=== PATIENT | male | born 1960 | race African-American/Black ===

== ENCOUNTER 2017-12-19 12:44 | Emergency (ER) | payer MEDICAID ==
[~2017-12-19] VITALS: Ht 193 cm; Wt 109.0 kg
[2017-12-19 14:23] LABS: BASOPHILS % 0.6 % (0.0-2.0); EOSINOPHILS % 2.5 % (0.0-5.0); HEMATOCRIT. 38.6 % (42.0-52.0); HEMOGLOBIN. 12.9 g/dL (14.0-18.0); LYMPHOCYTES % 41.8 % (20.0-50.0); MEAN CORPUSCULAR HEMOGLOBIN 27.4 pg (28.0-32.0); MEAN CORPUSCULAR VOLUME 81.9 fL (80.0-94.0); MEAN PLATELET VOLUME 9.7 fl (7.4-10.4); MONOCYTES % 6.8 % (2.0-8.0); NEUTROPHILS % 48.3 % (40.0-76.0); PLATELET 162 x1000/uL (130-400); RED BLOOD CELL COUNT 4.72 mill/uL (4.7-6.1); RED CELL DISTRIBUTION WIDTH 14.1 % (11.6-14.6)
[2017-12-19 14:32] LABS: CHLORIDE 103 mEq/L (98-107)
[2017-12-19 15:30] VITALS: BP 135/87
== END 2017-12-19 16:42 | disposition home or self-care (01) ==
LOC: ER 12:44
DX: R20.2 Paresthesia of skin (principal); R07.89 Other chest pain; M79.10 Myalgia, unspecified site; M79.641 Pain in right hand; F17.200 Nicotine dependence, unspecified, uncomplicated; E11.9 Type 2 diabetes mellitus without complications
CPT/HCPCS: 36415; 71045; 83880; 84484; 93005; 99285

== ENCOUNTER 2019-02-06 13:02 | Emergency (ER) | payer MEDICAID ==
[~2019-02-06] VITALS: Ht 188 cm; Wt 114.0 kg
[2019-02-06] MEDS ORDERED: HYDROCODONE/ACETAMINOPHEN 5/325MG TABLET PO ONE (17:30)
[2019-02-06 18:06] VITALS: BP 110/61
== END 2019-02-06 18:08 | disposition home or self-care (01) ==
LOC: ER 13:02
DX: M54.5 Low back pain (principal); F17.290 Nicotine dependence, other tobacco product, uncomplicated; E11.9 Type 2 diabetes mellitus without complications
CPT/HCPCS: 99283

== ENCOUNTER 2021-04-06 17:48 | Emergency (ER) | payer MEDICAID ==
[~2021-04-06] VITALS: Ht 177.8 cm; Wt 90.0 kg
[~2021-04-06 17:48] MED LIST: ASPI-1497 PO; ATOR-2 PO; CLOP-31 MT; INSU100I28 SQ; LOSA25TA26 PO; METF-416 PO; METO25TA6 PO
[2021-04-06] MEDS ORDERED: METOCLOPRAMIDE HCL 10MG/2ML VIAL IV STA (22:34)
[2021-04-06] MEDS ORDERED: MAGNESIUM/ALUMINUM HYDROXIDE/SIMETHICONE 30ML UDC PO STA (22:34)
[2021-04-06] MEDS ORDERED: SODIUM CHLORIDE 0.9% 1,000 ML IV ONE (22:45)
[2021-04-06 22:46] LABS: BASOPHILS % 0.3 % (0.0-2.0); EOSINOPHILS % 0.1 % (0.0-5.0); HEMATOCRIT. 42.5 % (42.0-52.0); LYMPHOCYTES % 23.3 % (20.0-50.0); MEAN CORPUSCULAR HEMOGLOBIN 26.5 pg (28.0-32.0); MEAN CORPUSCULAR VOLUME 80.5 fL (80.0-94.0); MEAN PLATELET VOLUME 10.9 fl (7.4-10.4); MONOCYTES % 4.6 % (2.0-8.0); NEUTROPHILS % 71.7 % (40.0-76.0); PLATELET 162 x1000/uL (130-400); RED BLOOD CELL COUNT 5.28 mill/uL (4.7-6.1); RED CELL DISTRIBUTION WIDTH 13.9 % (11.6-14.6)
[2021-04-06 22:55] LABS: CHLORIDE 100 mEq/L (98-107)
[2021-04-06 23:09] LABS: CLARITY URINE CLEAR (CLEAR); COLOR URINE YELLOW (YELLOW); KETONES URINE 1+ (NEGATIVE); LEUKOCYTE ESTERASE URINE NEGATIVE (NEGATIVE); NITRITE URINE NEGATIVE (NEGATIVE); OCCULT BLOOD URINE NEGATIVE (NEGATIVE); PROTEIN URINE TRACE (NEGATIVE); SPECIFIC GRAVITY URINE 1.037 (1.005-1.030); UROBILINOGEN URINE 0.2 E.U./dL (0.2-1.0)
[2021-04-07] MEDS ORDERED: ONDA4TAB5 MT (01:01)
[2021-04-07 01:32] VITALS: BP 140/81
== END 2021-04-07 01:33 | disposition home or self-care (01) ==
LOC: ER 17:48
DX: R11.2 Nausea with vomiting, unspecified (principal); E10.8 Type 1 diabetes mellitus with unspecified complications; I25.2 Old myocardial infarction; Z98.61 Coronary angioplasty status; Z79.82 Long term (current) use of aspirin; Z79.4 Long term (current) use of insulin
CPT/HCPCS: 36415; 71045; 80053; 81003; 83690; 84484; 85025; 96374; 99284; J2765; J7030